=== PATIENT | female | born 1945 | race Caucasian/White ===

== ENCOUNTER → 2022-07-11 | Outpatient (CLI) | payer MEDICARE, BC ==
[~2022-07-11] VITALS: Ht 149.9 cm; Wt 90.3 kg
[~2022-07-11] MED LIST: ALEVE; CELEXA; COZAAR 25MG25 MG/TAB PO; CYMBALTA; EFFEXOR-XR150 MG PO; HAIRSKINNAILS PO; LIPITOR20 MG PO; NAPROXEN 3375 MG/TAB PO; NORCO 325 MG-7.1 TAB PO; XIGDUO5/1000 PO
[2022-07-11 10:47] VITALS: BP 129/62; PULSE 85; TEMP 98.9
[2022-07-11 12:05] VITALS: BP 140/83; PULSE 127
[2022-07-11 12:07] VITALS: BP 140/90; PULSE 122
[2022-07-11 12:08] VITALS: BP 150/70; PULSE 115
== END ==
LOC: COL.CARD 10:15
DX: R07.9 Chest pain, unspecified (principal)
CPT/HCPCS: A9500; J2785